=== PATIENT | female | born 1990 | race Caucasian/White ===

== ENCOUNTER 2016-07-18 17:15 | Emergency (ER) | payer OTHER ==
[~2016-07-18] VITALS: Ht 170.2 cm; Wt 73.0 kg
[2016-07-18 17:50] VITALS: BP 133/101
== END 2016-07-18 18:16 | disposition left against medical advice (07) ==
LOC: ER 17:19
DX: F41.9 Anxiety disorder, unspecified (principal)

== ENCOUNTER → 2017-03-06 | Outpatient (CLI) | payer OTHER ==
[2017-03-06 09:50] LABS: Basophils # (auto) 0 uL; Basophils % (auto) 0.4 % (0.0-2.0); CONDITION Y; Eosinophils # (auto) 0 uL; Eosinophils % (auto) 0.5 % (0.0-7.0); Hematocrit 35.8 % (36.0-46.0); Hemoglobin 12.1 g/dL (12.2-16.2); Lymphocytes # (auto) 2.1 uL; Lymphocytes % (auto) 23.3 % (10.0-50.0); Mean Corpuscular Hemoglobin 31.4 pg (28.0-32.0); Mean Corpuscular Hgb Conc. 33.9 g/dL (32.0-36.0); Mean Corpuscular Volume 92.8 fL (80.0-100.0); Mean Platelet Volume 7.4 fL (7.4-10.4); Monocytes # (auto) 0.4 uL; Monocytes % (auto) 4.5 % (0.0-12.0); Neutrophils # (auto) 6.5 uL; Neutrophils % (auto) 71.3 % (37.0-80.0); Platelet Count (auto) 277 10^3/uL (140-450); Red Cell Distribution Width 12.8 % (11.6-16.0); White Blood Cell 9.1 10^3/uL (4.4-10.8)
== END | disposition home or self-care (01) ==
LOC: LAB 09:14
PROVIDERS: ATTEND Specialist
DX: O23.599 Infection of other part of genital tract in pregnancy, unspecified trimester (principal); N76.0 Acute vaginitis
CPT/HCPCS: 36415; 85025; 86592; 87081; 87086

== ENCOUNTER 2017-04-09 23:55 | Observation (INO) | payer OTHER ==
[~2017-04-09] VITALS: Ht 170.2 cm; Wt 83.9 kg
[2017-04-10] MEDS ORDERED: FLUT250M2 INH (03:22)
[2017-04-10] MEDS ORDERED: PREN-153 OR (03:22)
== END 2017-04-10 02:55 | disposition home or self-care (01) | DRG 782 ==
LOC: LDRP 23:55
PROVIDERS: ADMIT Obstetrics & Gynecology; ATTEND Obstetrics & Gynecology
DX: O46.93 Antepartum hemorrhage, unspecified, third trimester (principal); O48.0 Post-term pregnancy; O62.9 Abnormality of forces of labor, unspecified; Z3A.40 40 weeks gestation of pregnancy
CPT/HCPCS: 59025; 76818; 81002; G0378

== ENCOUNTER 2017-04-10 09:10 | Observation (INO) | payer OTHER ==
[~2017-04-10 09:10] MED LIST: FLUT250M2 INH; PREN-153 OR
== END 2017-04-10 11:05 | disposition home or self-care (01) | DRG 782 ==
LOC: LDRP 09:10
PROVIDERS: ADMIT Specialist; ATTEND Specialist
DX: O26.853 Spotting complicating pregnancy, third trimester (principal); O62.9 Abnormality of forces of labor, unspecified; Z3A.40 40 weeks gestation of pregnancy
CPT/HCPCS: G0378 ×2

== ENCOUNTER 2017-04-10 15:50 | Inpatient (IN) | payer OTHER ==
[~2017-04-10] VITALS: Ht 1 cm; Wt 0.5 kg
[2017-04-10] MEDS ORDERED: LACT. RINGERS/OXYTOCIN 20UNITS 1,000 ML IV SCH (16:36)
[2017-04-10] MEDS: LACTATED RINGER'S 1,000 ML IV SCH (16:36)
[2017-04-10] MEDS ORDERED: WITCH HAZEL-GLYCERIN PAD TOP PRN (16:45)
[2017-04-10] MEDS ORDERED: CARBOPROST TROMETHAMINE 250 MCG/1ML VIAL IM PRN (16:45)
[2017-04-10] MEDS ORDERED: METHYLERGONOVINE MALEATE 0.2 MG/ML AMP IM PRN (16:45)
[2017-04-10] MEDS ORDERED: PHISODERM TOP SOLN 240ML BTL TOP PRN (16:45)
[2017-04-10] MEDS ORDERED: DERMOPLAST 60ML BOTTLE TOP PRN (16:45)
[2017-04-10] MEDS ORDERED: NALBUPHINE HCL 10 MG/1ml INJECTION IV PRN (16:45)
[2017-04-10] MEDS ORDERED: LIDOCAINE 2%HCL (LOCAL ANESTH.) INJ 20ML MDV IJ ONE (16:45)
[2017-04-10 19:03] LABS: Potassium 3.7 mmol/L (3.5-5.1)
[2017-04-10 19:04] LABS: Albumin 3.2 g/dL (3.4-5.0); BUN/Creatinine Ratio 10.4; Bilirubin, Total 0.5 mg/dL (0.2-1.0); Calcium 8.4 mg/dL (8.5-10.1); Total Protein 7.5 g/dL (6.4-8.2); Uric Acid 2.8 mg/dL (2.6-6.0)
[2017-04-10 19:04] LABS: Urine Bilirubin Negative (Negative); Urine Blood TRACE /uL (Negative); Urine Color Yellow (Yellow); Urine Glucose Normal (Normal); Urine Ketone Negative (Negative); Urine Nitrite Negative (Negative); Urine RBC <1 /hpf (0 - 4); Urine Urobilinogen Normal (Negative); Urine pH 7.5 (5.0-8.0)
[2017-04-10 19:11] LABS: INR 0.86 (0.9-1.15); Prothrombin Time 9.4 sec (9.37-12.3)
[2017-04-10 19:18] LABS: Basophils # (auto) 0 uL; Basophils % (auto) 0.1 % (0.0-2.0); Eosinophils # (auto) 0.1 uL; Eosinophils % (auto) 0.4 % (0.0-7.0); Hematocrit 37.7 % (36.0-46.0); Hemoglobin 12.4 g/dL (12.2-16.2); Lymphocytes # (auto) 2.4 uL; Lymphocytes % (auto) 15.4 % (10.0-50.0); Mean Corpuscular Hgb Conc. 32.8 g/dL (32.0-36.0); Mean Corpuscular Volume 94.5 fL (80.0-100.0); Monocytes # (auto) 0.8 uL; Monocytes % (auto) 5.5 % (0.0-12.0); Neutrophils # (auto) 12.1 uL; Neutrophils % (auto) 78.6 % (37.0-80.0); Platelet Count (auto) 220 10^3/uL (140-450); Red Cell Distribution Width 12.5 % (11.8-14.3); White Blood Cell 15.4 10^3/uL (4.4-10.8)
[2017-04-10] MEDS ORDERED: AMMONIA 0.33 ML INHALANT IN ONE (19:36)
[2017-04-10] MEDS: DOCUSATE CALCIUM 240 MG CAP PO SCH (20:46)
[2017-04-11] VITALS (7 sets, daily range): BP systolic 98–130; BP diastolic 53–70
[2017-04-11] MEDS: LACTATED RINGER'S 1,000 ML IV SCH (00:36)
[2017-04-11] MEDS: IBUPROFEN 600 MG TAB PO PRN ×4 (01:50→22:30)
[2017-04-11] MEDS ORDERED: TETANUS-DIPTH-ACEL PERTUSSIS 0.5ML SYRG IM ONE (07:00)
[2017-04-11] MEDS: DOCUSATE CALCIUM 240 MG CAP PO SCH (10:00)
[2017-04-12 03:00] VITALS: BP 92/52
[2017-04-12] MEDS: IBUPROFEN 600 MG TAB PO PRN ×2 (05:00→09:52)
[2017-04-12 07:30] VITALS: BP 102/52
[2017-04-12] MEDS: DOCUSATE CALCIUM 240 MG CAP PO SCH (09:47)
== END 2017-04-12 11:55 | disposition home or self-care (01) | DRG 774 ==
LOC: LDRP 15:50 → OBSVTOIN 15:50 → LDRP 16:36
PROVIDERS: ADMIT Specialist; ATTEND Specialist
PROC: 10E0XZZ Delivery of Products of Conception, External Approach (ICD-10-PCS; principal; 2017-04-10)
DX: O45.93 Premature separation of placenta, unspecified, third trimester (principal); O26.833 Pregnancy related renal disease, third trimester; O99.52 Diseases of the respiratory system complicating childbirth; J45.909 Unspecified asthma, uncomplicated; N20.0 Calculus of kidney; Z37.0 Single live birth; Z3A.40 40 weeks gestation of pregnancy
CPT/HCPCS: 36415; 59025; 59409; 80053; 81001; 81002; 84550; 85025; 85610; 85730; 86850; 86900; 86901; 90472; 90715; 96361; 96366; 96372; J2590